=== PATIENT | female | born 1975 | race African-American/Black ===

== ENCOUNTER 2021-09-01 08:01 | Emergency (ER) | payer SELFPAY ==
[2021-09-01] MEDS ORDERED: diphenhydrAMINE 25 MG CAP ONE (08:41)
== END 2021-09-01 08:55 | disposition home or self-care (01) ==
LOC: ERS 08:01
DX: T78.40XA Allergy, unspecified, initial encounter (principal); G40.909 Epilepsy, unspecified, not intractable, without status epilepticus; Z79.899 Other long term (current) drug therapy
CPT/HCPCS: 99283